=== PATIENT | male | born 1965 | race Caucasian/White ===

== ENCOUNTER 2017-03-02 16:42 | Emergency (ER) | payer BC, OTHER ==
[~2017-03-02] VITALS: Ht 182.9 cm; Wt 72.6 kg
--- NOTE | ~2017-03-02 | EKG ---
[address] [address] ELECTROCARDIOGRAM REPORT Name: ARABELLA GAYTAN Juliana [facility] [id number] Admission: 03/02/17 Attend Phys: Discharge: 03/02/17 Date of : 63 Report #: [id number] THIS REPORT FOR: //name// [facility] ED Test Date: 2017-03-02 Test Time: 16:51:21 Pat Name: ARABELLA GAYTAN Department: Room: Gender: Rehab Services Aide: [facility] : 1965 Requested By: Josh Brown Order Number: [id number] MD: Sharad Soares Measurements Intervals [place] Rate: 90 P: 79 MD: 143 QRS: 25 QRSD: 88 T: 53 QT: 356 QTc: 436 Interpretive Statements Sinus rhythm No previous ECG available for comparison Electronically Signed On 03-02-2017 21:53:37 [employer] by Sharad Soares [email or web address] <ELECTRONICALLY SIGNED> By: hSarad Soares MD 03/02/17 [id number] Sharad Soares MD /BOOM
[2017-03-02] MEDS ORDERED: PRILOSEC 10MG C10 MG PO (17:18)
[2017-03-02] MEDS ORDERED: ATIVAN0.5 MG PO (17:19)
[2017-03-02 18:08] LABS: ANION GAP 10 mmol/L (7-16); BUN 17 mg/dL (7-18); CALCIUM 9.3 mg/dL (8.5-10.1); CHLORIDE 105 mmol/L (98-107); CO2 26 mmol/L (21-32); CREATININE 0.9 mg/dL (0.7-1.3); GLUCOSE 108 mg/dL (74-106); SODIUM 141 mmol/L (136-145)
[2017-03-02 18:09] LABS: POTASSIUM 4.3 mmol/L (3.5-5.1)
[2017-03-02 18:15] LABS: HEMATOCRIT 41.4 % (42.0-52.0); HEMOGLOBIN 13.8 gm/dL (14.0-18.0); MCHC 33.3 g/dL (28.0-37.0); PLATELET COUNT 129 thou/uL (150-400); RBC 4.61 mil/uL (4.50-6.00); RDW 13.5 % (10.5-14.5); WBC 11.9 thou/uL (4.0-11.0)
[2017-03-02 18:16] LABS: MANUAL DIFF YES
[2017-03-02 18:17] LABS: TROPONIN-I < 0.04 ng/mL (<0.06)
[2017-03-02 18:48] LABS: ABSOLUTE NEUTROPHILS 10.4 thou/uL (1.4-8.2); ANISOCYTOSIS 1+; TOTAL CELL COUNT 100
[2017-03-02 19:56] VITALS: BP 117/81
== END 2017-03-02 19:57 | disposition home or self-care (01) ==
LOC: ER 16:42
PROVIDERS: Physician Assistant
DX: F41.9 Anxiety disorder, unspecified (principal)